=== PATIENT | male | born 1945 | race Caucasian/White ===

== ENCOUNTER 2022-03-16 12:26 | Emergency (ER) | payer MEDICARE ==
[~2022-03-16] VITALS: Ht 170.2 cm; Wt 88.6 kg
[2022-03-16] MEDS ORDERED: PROC30TA PO (12:43)
[2022-03-16] MEDS ORDERED: LOSA50TA28 PO (12:43)
[2022-03-16] MEDS ORDERED: OMEP10CASR PO (12:43)
[2022-03-16] MEDS ORDERED: ELIQ5TAB PO (12:43)
[2022-03-16] MEDS ORDERED: ATOR40TA75 PO (12:43)
[2022-03-16] MEDS ORDERED: GLIP10TA PO (12:43)
[2022-03-16] MEDS ORDERED: ULTR50TA8 PO (15:04)
[2022-03-16] MEDS ORDERED: ACETAMINOPHEN TAB 650MG DOSE (2X325MG) PO ONE (15:05)
[2022-03-16] MEDS ORDERED: MEDR4PAK PO (15:05)
[2022-03-16] MEDS ORDERED: traMADol 50 MG TAB PO ONE (15:05)
[2022-03-16 15:22] VITALS: BP 152/92
== END 2022-03-16 15:23 | disposition home or self-care (01) ==
LOC: M ED 12:26
DX: M50.30 Other cervical disc degeneration, unspecified cervical region (principal); S16.1XXA Strain of muscle, fascia and tendon at neck level, initial encounter; X58.XXXA Exposure to other specified factors, initial encounter; Y92.89 Other specified places as the place of occurrence of the external cause; I10 Essential (primary) hypertension; E11.9 Type 2 diabetes mellitus without complications; E78.00 Pure hypercholesterolemia, unspecified; K21.9 Gastro-esophageal reflux disease without esophagitis; Z79.899 Other long term (current) drug therapy; Z79.84 Long term (current) use of oral hypoglycemic drugs; Z79.01 Long term (current) use of anticoagulants

== ENCOUNTER → 2022-05-05 | Outpatient (CLI) | payer MEDICARE ==
[~2022-05-05] MED LIST: ATOR40TA75 PO; ELIQ5TAB PO; GLIP10TA PO; LOSA50TA28 PO; MEDR4PAK PO; OMEP10CASR PO; PROC30TA PO; ULTR50TA8 PO
== END ==
LOC: M CARPUL 11:01
DX: I35.0 Nonrheumatic aortic (valve) stenosis (principal); Z95.0 Presence of cardiac pacemaker; I25.10 Atherosclerotic heart disease of native coronary artery without angina pectoris; Z95.2 Presence of prosthetic heart valve